=== PATIENT | female | born 1985 | race African-American/Black ===

== ENCOUNTER 2017-01-17 19:16 | Emergency (ER) | payer MEDICAID ==
[~2017-01-17] VITALS: Ht 160 cm; Wt 100.2 kg
[2017-01-17 20:04] LABS: Urine Bilirubin Negative (Negative); Urine Blood Negative /uL (Negative); Urine Color Yellow (Yellow); Urine Glucose Normal (Normal); Urine Ketone Negative (Negative); Urine Mucus FEW (None Seen); Urine Nitrite Negative (Negative); Urine RBC 2 /hpf (0 - 4); Urine Squamous Epithelial Cell MOD /hpf (<5); Urine Urobilinogen Normal (Negative); Urine pH 6.5 (5.0-8.0)
[2017-01-17 20:05] LABS: Basophils # (auto) 0 uL; Basophils % (auto) 0.4 % (0.0-2.0); Eosinophils # (auto) 0.1 uL; Eosinophils % (auto) 1.5 % (0.0-7.0); Hematocrit 36.1 % (36.0-46.0); Hemoglobin 12.2 g/dL (12.2-16.2); Lymphocytes # (auto) 3.8 uL; Lymphocytes % (auto) 37.4 % (10.0-50.0); Mean Corpuscular Hemoglobin 29.4 pg (28.0-32.0); Mean Corpuscular Hgb Conc. 33.8 g/dL (32.0-36.0); Mean Platelet Volume 8.4 fL (6.9-10.8); Monocytes # (auto) 0.6 uL; Monocytes % (auto) 5.9 % (0.0-12.0); Neutrophils # (auto) 5.6 uL; Neutrophils % (auto) 54.8 % (37.0-80.0); Platelet Count (auto) 291 10^3/uL (140-450); Red Cell Distribution Width 13.9 % (11.8-14.3); White Blood Cell 10.1 10^3/uL (4.4-10.8)
[2017-01-17 20:18] LABS: Albumin 3.7 g/dL (3.4-5.0); Alkaline Phosphatase 73 U/L (45-117); Amylase 30 U/L (25-115); Anion Gap 7 (5-15); Aspartate Aminotransferase 14 U/L (15-37); Bilirubin, Total 0.3 mg/dL (0.2-1.0); Blood Urea Nitrogen 12 mg/dL (7-18); Calcium 8.9 mg/dL (8.5-10.1); Carbon Dioxide 26 mmol/L (21-32); Chloride 105 mmol/L (98-107); GFR African American 143 mL/min; GFR Non-African American 118 mL/min; Glucose 87 mg/dL (74-106); Magnesium 2.4 mg/dL (1.6-2.6); Potassium 3.7 mmol/L (3.5-5.1); Sodium 138 mmol/L (136-145); Total Protein 8.2 g/dL (6.4-8.2)
[2017-01-17] MEDS ORDERED: NALBUPHINE HCL 10 MG/1ml INJECTION IV ONE (22:15)
[2017-01-17] MEDS ORDERED: ONDANSETRON HCL 4 MG/2 ML VIAL IV ONE (22:15)
[2017-01-17] MEDS ORDERED: SODIUM CHLORIDE 0.9% 1,000 ML IV ONE (22:15)
[2017-01-18 00:05] VITALS: BP 125/78
== END 2017-01-17 23:51 | disposition home or self-care (01) ==
LOC: ER 19:19
DX: K29.00 Acute gastritis without bleeding (principal); K43.9 Ventral hernia without obstruction or gangrene; Z88.1 Allergy status to other antibiotic agents
CPT/HCPCS: 36415; 74176; 80053; 81001; 81025; 82150; 83690; 83735; 84484; 85025; 96361; 96374; 96375; 99285; J2300; J2405; J7030